=== PATIENT | male | born 1995 | race Caucasian/White ===

== ENCOUNTER 2018-12-18 11:47 | Emergency (ER) | payer BC ==
--- NOTE | 2018-12-18 12:30 | ER Document Report ---
HPI - HPI Time Seen by Provider: 12/18/18 12:10 Pain Level: 3 Context: Patient is a 23-year-old male who presents the emergency department with a chief complaint of right ankle pain. He was in a motocross race yesterday and went up in the ER and when he came down did not have his feet on the pegs and slammed his right foot and to the ground. He states that he cannot rotate his foot. He does admit to some edema and ecchymosis to his right ankle, specifically on the medial aspect. He is able to walk, but states it hurts. He has been taking ibuprofen and Tylenol together with good relief of his pain. Denies any past medical history. - CONSTITUTIONAL Constitutional: DENIES: Fever, Chills - EENT EENT: DENIES: Sore Throat, Ear Pain - NEURO Neurology: DENIES: Headache - CARDIOVASCULAR Cardiovascular: DENIES: Chest pain - RESPIRATORY Respiratory: DENIES: Coughing - GASTROINTESTINAL Gastrointestinal: DENIES: Abdominal Pain - MUSCULOSKELETAL Musculoskeletal: REPORTS: Extremity pain - Right ankle, Swelling - Right ankle. DENIES: Back Pain, Neck Pain - DERM Skin Color: Normal Skin Problems: None Past Medical History - Social History Smoking Status: Never Smoker Family History: Reviewed & Not Pertinent Vertical Provider Document - CONSTITUTIONAL Agree With Documented VS: Yes Exam Limitations: No Limitations General Appearance: No Apparent Distress - INFECTION CONTROL TRAVEL OUTSIDE OF THE [place] IN LAST 30 DAYS: No - HEENT HEENT: Atraumatic, Normocephalic, PERRLA - NECK Neck: Normal Inspection - RESPIRATORY Respiratory: No Respiratory Distress - CARDIOVASCULAR Cardiovascular: Regular Rhythm Pulses: Normal: Posterior tibial, Dorsalis pedis - MUSCULOSKELETAL/EXTREMETIES Musculoskeletal/Extremeties: Tender - Right medial ankle, Edema - Right medial ankle, Eccymosis - Right medial ankle. negative: FROM - NEURO Level of Consciousness: Awake, Alert, Appropriate - DERM Integumentary: Warm, Dry, No Rash Course - Re-evaluation Re-evalutation: 12/18/18 13:15 Patient has a medial malleolar fracture noted on x-ray. He will be placed in a splint and crutches. He is visiting from [place]. I have advised him that he needs to follow-up with orthopedics in regards to his fracture. He is in agreement with this plan. He has good capillary refill and neurovascular compromise noted as the patient's dorsalis pedis and posterior tibial pulses are both 2+. Verbal discharge instructions were given to the patient. They verbalized understanding. They are stable for discharge. - Vital Signs Vital signs: Temp Pulse Resp BP Pulse Ox 98.5 F 65 16 144/81 H 98 12/18/18 11:52 12/18/18 11:52 12/18/18 11:52 12/18/18 11:52 12/18/18 11:52 Procedures - Immobilization Left Leg Pre-Proc Neuro Vasc Exam: Normal Immobilizer type: Posterior ankle Performed by: PCT Post-Proc Neuro Vasc Exam: Normal, Unchanged from pre-exam Alignment checked and good: Yes Discharge - Discharge Clinical Impression: Fx medial malleolus-closed Qualifiers: Encounter type: initial encounter Fracture alignment: nondisplaced Laterality: right Qualified Code(s): S82.54XA - Nondisplaced fracture of medial malleolus of right tibia, initial encounter for closed fracture Condition: Stable Disposition: HOME, SELF-CARE Additional Instructions: You were seen today in the emergency department for right ankle pain. You do have a fracture in your ankle. Please follow-up with orthopedics in [place]. You have been placed in a splint. You can release the splint and rewrap it as needed. Please take ibuprofen 600 mg and acetaminophen 1000 mg every 6 hours as needed for your pain. Please use your crutches. If you have worsening symptoms, please return to the emergency department or see your primary care provider. Referrals: GET LANDRY MD [ACTIVE STAFF] - 12/20/18
--- NOTE | 2018-12-18 12:58 | RADIOLOGY REPORT (SQ) ---
EXAM DESCRIPTION: ANKLE RIGHT COMPLETE COMPLETED DATE/TIME: 12/18/2018 12:44 pm REASON FOR STUDY: trauma COMPARISON: None. EXAM PARAMETERS: NUMBER OF VIEWS: Three views. TECHNIQUE: AP, lateral and oblique radiographic images acquired of the right ankle. LIMITATIONS: None. FINDINGS: MINERALIZATION: Normal. BONES: Nondisplaced medial malleolar fracture. No Dislocation. No worrisome bone lesions. JOINTS: Small effusion. SOFT TISSUES: No significant soft tissue swelling. No radiopaque foreign body. OTHER: No other significant finding. IMPRESSION: Nondisplaced medial malleolar fracture. TECHNICAL DOCUMENTATION: JOB ID: [id number] 2010 [employer]- All Rights Reserved Reading location - IP/workstation name: [email or web address]
[2018-12-18 13:34] VITALS: BP 137/90
== END 2018-12-18 13:34 | disposition home or self-care (01) ==
LOC: ER 11:47
DX: S82.54XA Nondisplaced fracture of medial malleolus of right tibia, initial encounter for closed fracture (principal); V86.56XA Driver of dirt bike or motor/cross bike injured in nontraffic accident, initial encounter; Y93.59 Activity, other involving other sports and athletics played individually
CPT/HCPCS: 99283; 73610; 29515; L1902